=== PATIENT | female | born 1935 | race Caucasian/White ===

== ENCOUNTER 2017-12-08 15:16 | Inpatient (IN) | payer MEDICARE, BC ==
[~2017-12-08] VITALS: Ht 162.6 cm; Wt 69.9 kg
[2017-12-08 18:49] LABS: BASOPHILS % 0.4 % (0.0-2.0); EOSINOPHILS % 2.3 % (0.0-5.0); HEMATOCRIT. 37.6 % (36.0-48.0); HEMOGLOBIN. 12.7 g/dL (12.0-16.0); LYMPHOCYTES % 29.6 % (20.0-50.0); MEAN CORPUSCULAR HEMOGLOBIN 30.5 pg (28.0-32.0); MEAN CORPUSCULAR VOLUME 89.9 fL (81.0-99.0); MEAN PLATELET VOLUME 9.6 fl (7.4-10.4); MONOCYTES % 10.7 % (2.0-8.0); PLATELET 260 x1000/uL (130-400); RED BLOOD CELL COUNT 4.18 mill/uL (4.2-5.4)
[2017-12-08 18:55] LABS: CHLORIDE 103 mEq/L (98-107)
[2017-12-08 22:00] VITALS: BP 193/67
[2017-12-08 22:35] LABS: CLARITY URINE CLEAR (CLEAR); COLOR URINE YELLOW (YELLOW); KETONES URINE NEGATIVE (NEGATIVE); LEUKOCYTE ESTERASE URINE 2+ (NEGATIVE); NITRITE URINE NEGATIVE (NEGATIVE); OCCULT BLOOD URINE NEGATIVE (NEGATIVE); PROTEIN URINE NEGATIVE (NEGATIVE); SPECIFIC GRAVITY URINE 1.009 (1.005-1.030); UROBILINOGEN URINE 0.2 E.U./dL (0.2-1.0)
[2017-12-08] MEDS ORDERED: DEXTROSE 50% WATER 50ML SYRINGE IV PRN (22:45)
[2017-12-08] MEDS ORDERED: CLONIDINE 0.1MG TABLET PO PRN (22:45)
[2017-12-08] MEDS ORDERED: DIPHENHYDRAMINE 50MG/ML VIAL IV PRN (22:45)
[2017-12-08] MEDS ORDERED: ACETAMINOPHEN 325MG TABLET PO PRN (22:45)
[2017-12-08] MEDS ORDERED: MAGNESIUM/ALUMINUM HYDROXIDE/SIMETHICONE 30ML UDC PO PRN (22:45)
[2017-12-08 23:17] VITALS: BP 193/67
[2017-12-09] VITALS (7 sets, daily range): BP systolic 108–167; BP diastolic 56–81
[2017-12-09] MEDS: CEFTRIAXONE 1 G PREMIX 50 ML IV SCH (04:34)
[2017-12-09] MEDS: SODIUM CHLORIDE 0.9% INJ 3ML FLUSH IVF SCH ×3 (05:01→22:33)
[2017-12-09] MEDS: BLOOD SUGAR DIAGNOSTIC STRIP TEST SCH ×4 (06:31→20:24)
[2017-12-09] MEDS: INSULIN LISPRO 100 UNITS/ML SUBCUT SCH ×4 (07:50→20:28)
[2017-12-09] MEDS ORDERED: AMLODIPINE 10MG TABLET PO SCH (09:00)
[2017-12-09] MEDS ORDERED: LOSARTAN POTASSIUM 25 MG TABLET PO NR (12:30)
[2017-12-09 15:39] LABS: T4 FREE 1.21 ng/dL (0.76-1.46)
[2017-12-09] MEDS: METFORMIN HCL 500MG SR TABLET 24HR PO SCH (18:18)
[2017-12-09] MEDS: AMLODIPINE 10MG TABLET PO SCH (18:19)
[2017-12-10] MEDS: CEFTRIAXONE 1 G PREMIX 50 ML IV SCH (02:36)
[2017-12-10 03:55] VITALS: BP 146/60
[2017-12-10] MEDS: SODIUM CHLORIDE 0.9% INJ 3ML FLUSH IVF SCH ×3 (05:27→21:37)
[2017-12-10 06:46] LABS: BASOPHILS % 0.2 % (0.0-2.0); EOSINOPHILS % 2.4 % (0.0-5.0); HEMATOCRIT. 39.2 % (36.0-48.0); HEMOGLOBIN. 13.1 g/dL (12.0-16.0); LYMPHOCYTES % 29.8 % (20.0-50.0); MEAN CORPUSCULAR HEMOGLOBIN 30.4 pg (28.0-32.0); MEAN CORPUSCULAR VOLUME 90.7 fL (81.0-99.0); MEAN PLATELET VOLUME 9.7 fl (7.4-10.4); MONOCYTES % 10.6 % (2.0-8.0); PLATELET 229 x1000/uL (130-400); RED BLOOD CELL COUNT 4.32 mill/uL (4.2-5.4)
[2017-12-10] MEDS: BLOOD SUGAR DIAGNOSTIC STRIP TEST SCH ×4 (06:51→21:26)
[2017-12-10 07:46] LABS: CHLORIDE 103 mEq/L (98-107)
[2017-12-10] MEDS: INSULIN LISPRO 100 UNITS/ML SUBCUT SCH ×4 (07:50→21:00)
[2017-12-10 08:00] VITALS: BP 159/70
[2017-12-10] MEDS: FUROSEMIDE 20MG/2ML VIAL IVP SCH (08:53)
[2017-12-10] MEDS: AMLODIPINE 10MG TABLET PO SCH ×2 (08:54→18:38)
[2017-12-10] MEDS ORDERED: LOSARTAN POTASSIUM 25 MG TABLET PO SCH (09:00)
[2017-12-10] MEDS ORDERED: POTASSIUM CHLORIDE 20MEQ TABLET SR PO NR (11:30)
[2017-12-10 12:00] VITALS: BP 143/63
[2017-12-10 16:00] VITALS: BP 141/68
[2017-12-10 16:38] LABS: AMMONIA 16 uMol/L (<32)
[2017-12-10 16:52] LABS: T4 FREE 1.21 ng/dL (0.76-1.46)
[2017-12-10] MEDS: LORAZEPAM 2MG/ML CPJ IM PRN ×2 (17:20→23:46)
[2017-12-10] MEDS: METFORMIN HCL 500MG SR TABLET 24HR PO SCH (18:38)
[2017-12-10 20:36] VITALS: BP 162/65
[2017-12-10] MEDS: LOSARTAN POTASSIUM 25 MG TABLET PO SCH (21:37)
[2017-12-11] VITALS (8 sets, daily range): BP systolic 131–178; BP diastolic 54–70
[2017-12-11 00:04] LABS: VITAMIN B12 SERUM 429 pg/mL (211-911)
[2017-12-11 00:05] LABS: FOLIC ACID (FOLATE) SERUM > 20.00 ng/mL (>5.38)
[2017-12-11] MEDS: CEFTRIAXONE 1 G PREMIX 50 ML IV SCH (03:27)
[2017-12-11] MEDS: SODIUM CHLORIDE 0.9% INJ 3ML FLUSH IVF SCH ×2 (05:05→13:57)
[2017-12-11] MEDS: BLOOD SUGAR DIAGNOSTIC STRIP TEST SCH ×4 (06:00→21:47)
[2017-12-11] MEDS: LOSARTAN POTASSIUM 25 MG TABLET PO SCH ×2 (08:09→21:00)
[2017-12-11] MEDS: AMLODIPINE 10MG TABLET PO SCH ×2 (08:09→17:31)
[2017-12-11] MEDS: FUROSEMIDE 20MG/2ML VIAL IVP SCH (08:09)
[2017-12-11] MEDS: INSULIN LISPRO 100 UNITS/ML SUBCUT SCH ×4 (08:10→21:00)
[2017-12-11] MEDS ORDERED: DONEPEZIL HCL 5MG TABLET PO SCH (09:00)
[2017-12-11 10:54] LABS: BASOPHILS % 0.6 % (0.0-2.0); HEMATOCRIT. 40.7 % (36.0-48.0); HEMOGLOBIN. 13.7 g/dL (12.0-16.0); LYMPHOCYTES % 26.8 % (20.0-50.0); MEAN CORPUSCULAR HEMOGLOBIN 30.4 pg (28.0-32.0); MEAN CORPUSCULAR VOLUME 90.3 fL (81.0-99.0); MEAN PLATELET VOLUME 10.6 fl (7.4-10.4); MONOCYTES % 9.1 % (2.0-8.0); NEUTROPHILS % 61.5 % (40.0-76.0); PLATELET 249 x1000/uL (130-400); RED BLOOD CELL COUNT 4.51 mill/uL (4.2-5.4); RED CELL DISTRIBUTION WIDTH 14.2 % (11.6-14.6)
[2017-12-11 11:59] LABS: AMMONIA 39 uMol/L (<32)
[2017-12-11 15:37] LABS: CHLORIDE 104 mEq/L (98-107)
[2017-12-11 15:44] LABS: LDL CHOLESTEROL 75 mg/dL (5-100)
[2017-12-11 15:45] LABS: HDL CHOLESTEROL 70 mg/dL (40-59)
[2017-12-11] MEDS: METFORMIN HCL 500MG SR TABLET 24HR PO SCH (17:31)
[2017-12-11] MEDS ORDERED: RISPERIDONE 0.25MG TABLET PO SCH (21:00)
== END 2017-12-11 22:00 | DRG 871 ==
LOC: ER 15:16 → 6WST 19:56 → EDBEDREQ 19:57 → EDBEDREQTM 19:57 → ENRESERV 20:23
PROVIDERS: ADMIT Internal Medicine; ATTEND Internal Medicine
PROC: 4A00X4Z Measurement of Central Nervous Electrical Activity, External Approach (ICD-10-PCS; principal; 2017-12-11)
DX: A41.9 Sepsis, unspecified organism (principal); G92 Toxic encephalopathy; N39.0 Urinary tract infection, site not specified; E66.01 Morbid (severe) obesity due to excess calories; E03.9 Hypothyroidism, unspecified; E11.42 Type 2 diabetes mellitus with diabetic polyneuropathy; E78.5 Hyperlipidemia, unspecified; E87.6 Hypokalemia; F03.90 Unspecified dementia, unspecified severity, without behavioral disturbance, psychotic disturbance, mood disturbance, and anxiety; F32.9 Major depressive disorder, single episode, unspecified; G47.33 Obstructive sleep apnea (adult) (pediatric); I11.9 Hypertensive heart disease without heart failure; I34.0 Nonrheumatic mitral (valve) insufficiency; M19.90 Unspecified osteoarthritis, unspecified site; M54.30 Sciatica, unspecified side; N28.9 Disorder of kidney and ureter, unspecified; B96.89 Other specified bacterial agents as the cause of diseases classified elsewhere; Z96.659 Presence of unspecified artificial knee joint; R26.9 Unspecified abnormalities of gait and mobility; F99 Mental disorder, not otherwise specified; Z79.899 Other long term (current) drug therapy; Z87.440 Personal history of urinary (tract) infections; Z91.19 Patient's noncompliance with other medical treatment and regimen; Z68.26 Body mass index [BMI] 26.0-26.9, adult
CPT/HCPCS: 36415; 70450; 80048; 80053; 80061; 81003; 82140; 82607; 82746; 82962; 83036; 83735; 83880; 84439; 84443; 84481; 84484; 85025; 87077; 87086; 87186; 93005; 93880; 93970; 97162; 99285; G0482; J0696; J1200; J1815; J1940; J2060; J7040

== ENCOUNTER → 2018-03-06 | Outpatient (CLI) | payer MEDICARE, BC | END | disposition home or self-care (01) | LOC: MRI 13:39 | PROVIDERS: ATTEND Internal Medicine Critical Care Medicine | DX: G31.9 Degenerative disease of nervous system, unspecified (principal) | CPT/HCPCS: 70551 ==

== ENCOUNTER 2019-03-28 15:47 | Emergency (ER) | payer MEDICARE, BC ==
[~2019-03-28] VITALS: Ht 160 cm; Wt 77.0 kg
[2019-03-28] MEDS ORDERED: LOSARTAN POTASSIUM 100 MG TABLET PO ONE (19:45)
[2019-03-28] MEDS ORDERED: ACETAMINOPHEN 500MG TABLET PO ONE (19:45)
[2019-03-28 21:31] VITALS: BP 190/65
== END 2019-03-28 21:45 | disposition home or self-care (01) ==
LOC: ER 16:00
DX: S20.212A Contusion of left front wall of thorax, initial encounter (principal); W18.39XA Other fall on same level, initial encounter; Y93.89 Activity, other specified; Y92.89 Other specified places as the place of occurrence of the external cause; Y99.8 Other external cause status; F03.90 Unspecified dementia, unspecified severity, without behavioral disturbance, psychotic disturbance, mood disturbance, and anxiety; E11.9 Type 2 diabetes mellitus without complications; I10 Essential (primary) hypertension; Z96.659 Presence of unspecified artificial knee joint
CPT/HCPCS: 71250; 99284

== ENCOUNTER 2019-04-02 05:02 | Inpatient (IN) | payer MEDICARE, BC ==
[~2019-04-02] VITALS: Ht 160 cm; Wt 99.8 kg
[2019-04-02 07:12] LABS: HEMATOCRIT. 35.7 % (36.0-48.0); HEMOGLOBIN. 12.4 g/dL (12.0-16.0); MEAN CORPUSCULAR HEMOGLOBIN 31.3 pg (28.0-32.0); MEAN CORPUSCULAR VOLUME 90.4 fL (81.0-99.0); MEAN PLATELET VOLUME 9.3 fl (7.4-10.4); PLATELET 216 x1000/uL (130-400); RED BLOOD CELL COUNT 3.95 mill/uL (4.2-5.4); RED CELL DISTRIBUTION WIDTH 13.5 % (11.6-14.6)
[2019-04-02 07:15] LABS: CHLORIDE 100 mEq/L (98-107)
[2019-04-02 07:19] LABS: ETHANOL BLOOD < 10 mg/dL
[2019-04-02 07:22] LABS: LDL CHOLESTEROL 68 mg/dL (5-100)
[2019-04-02 07:28] LABS: INR 1.1; PROTHROMBIN TIME 11.2 sec (9.6-11.0)
[2019-04-02 07:44] LABS: PLATELET ESTIMATE NORMAL
[2019-04-02] MEDS ORDERED: ASPIRIN 325MG EC TABLET PO ONE (07:45)
[2019-04-02] MEDS ORDERED: POTASSIUM CHLORIDE 20MEQ TABLET SR PO ONE (07:45)
[2019-04-02] MEDS ORDERED: IPRATROPIUM/ALBUTEROL 0.5-3(2.5)MG/3ML NEB NEB PRN (09:45)
[2019-04-02] MEDS ORDERED: GUAIFENESIN 200MG/10ML SUGAR FREE UDC PO PRN (09:45)
[2019-04-02] MEDS ORDERED: DEXTROSE 50% WATER 50ML SYRINGE IV PRN (09:45)
[2019-04-02] MEDS ORDERED: CLONIDINE 0.1MG TABLET PO PRN (09:45)
[2019-04-02] MEDS ORDERED: ONDANSETRON HCL 4MG/2ML INJ IV PRN (09:45)
[2019-04-02 10:30] VITALS: BP 165/71
[2019-04-02] MEDS: INSULIN LISPRO 100 UNITS/ML SUBCUT SCH ×3 (12:40→21:00)
[2019-04-02] MEDS: BLOOD SUGAR DIAGNOSTIC STRIP TEST SCH ×3 (13:02→21:25)
[2019-04-02] MEDS: HYDROCHLOROTHIAZIDE 25MG TABLET PO SCH (14:15)
[2019-04-02] MEDS: LOSARTAN POTASSIUM 100 MG TABLET PO SCH (14:16)
[2019-04-02] MEDS: BUMETANIDE 1MG TABLET PO SCH (14:16)
[2019-04-02] MEDS: ACETAMINOPHEN 325MG TABLET PO PRN (16:33)
[2019-04-02 16:44] LABS: CLARITY URINE CLOUDY (CLEAR); COLOR URINE YELLOW (YELLOW); KETONES URINE 2+ (NEGATIVE); LEUKOCYTE ESTERASE URINE 2+ (NEGATIVE); NITRITE URINE POSITIVE (NEGATIVE); OCCULT BLOOD URINE 2+ (NEGATIVE); PROTEIN URINE 1+ (NEGATIVE); SPECIFIC GRAVITY URINE 1.017 (1.005-1.030); UROBILINOGEN URINE 0.2 E.U./dL (0.2-1.0)
[2019-04-02 16:52] VITALS: BP 150/68
[2019-04-02 16:56] LABS: CANNABINOID URINE SCREEN NEGATIVE (NEGATIVE); METHADONE URINE SCREEN NEGATIVE (NEGATIVE); OPIATES URINE SCREEN NEGATIVE (NEGATIVE); PHENCYCLIDINE URINE SCREEN NEGATIVE (NEGATIVE)
[2019-04-02 16:57] LABS: *AMPHETAMINES SCREEN URINE NEGATIVE (NEGATIVE); *BARBITURATES SCREEN URINE NEGATIVE (NEGATIVE); *BENZODIAZEPINES SCREEN URINE NEGATIVE (NEGATIVE); *COCAINE SCREEN URINE NEGATIVE (NEGATIVE)
[2019-04-02 20:00] VITALS: BP 136/70
[2019-04-02] MEDS: LEVOFLOXACIN 500MG PREMIX 100 ML IV SCH (23:48)
[2019-04-03] VITALS (7 sets, daily range): BP systolic 131–159; BP diastolic 60–83
[2019-04-03] MEDS: ACETAMINOPHEN 325MG TABLET PO PRN (01:15)
[2019-04-03] MEDS: LEVOTHYROXINE SODIUM 100MCG TABLET PO SCH (05:57)
[2019-04-03] MEDS: OMEPRAZOLE 20MG CAPSULE EXTENDED RELEASE PO SCH (05:57)
[2019-04-03] MEDS: BLOOD SUGAR DIAGNOSTIC STRIP TEST SCH ×4 (06:16→21:00)
[2019-04-03] MEDS: INSULIN LISPRO 100 UNITS/ML SUBCUT SCH ×4 (06:17→21:00)
[2019-04-03 07:36] LABS: BASOPHILS % 0.3 % (0.0-2.0); EOSINOPHILS % 0.2 % (0.0-5.0); HEMATOCRIT. 35.7 % (36.0-48.0); HEMOGLOBIN. 12.4 g/dL (12.0-16.0); MEAN CORPUSCULAR VOLUME 89.4 fL (81.0-99.0); MEAN PLATELET VOLUME 9.5 fl (7.4-10.4); MONOCYTES % 14.4 % (2.0-8.0); NEUTROPHILS % 68.1 % (40.0-76.0); PLATELET 210 x1000/uL (130-400); RED BLOOD CELL COUNT 3.99 mill/uL (4.2-5.4); RED CELL DISTRIBUTION WIDTH 13.4 % (11.6-14.6)
[2019-04-03 08:11] LABS: CHLORIDE 99 mEq/L (98-107)
[2019-04-03 08:28] LABS: LDL CHOLESTEROL 59 mg/dL (5-100)
[2019-04-03 08:30] LABS: HDL CHOLESTEROL 52 mg/dL (40-59); T4 FREE 1.22 ng/dL (0.76-1.46)
[2019-04-03] MEDS: BUMETANIDE 1MG TABLET PO SCH (08:52)
[2019-04-03] MEDS: POTASSIUM CHLORIDE 20MEQ TABLET SR PO SCH (08:53)
[2019-04-03] MEDS: HYDROCHLOROTHIAZIDE 25MG TABLET PO SCH (08:53)
[2019-04-03] MEDS: LOSARTAN POTASSIUM 100 MG TABLET PO SCH (08:53)
[2019-04-03] MEDS ORDERED: POTASSIUM CHLORIDE 20MEQ TABLET SR PO NR (11:00)
[2019-04-03] MEDS ORDERED: PNEUMOCOCCAL 23-VAL P-SAC VAC 0.5 ML IM ONE (11:00)
[2019-04-03] MEDS ORDERED: INFLUENZA VIRUS VACCINE(AFLURIA) 0.5ML SYR IM ONE (11:00)
[2019-04-03] MEDS: LEVOFLOXACIN 500MG PREMIX 100 ML IV SCH (21:14)
[2019-04-04] VITALS (7 sets, daily range): BP systolic 128–159; BP diastolic 46–71
[2019-04-04] MEDS: BLOOD SUGAR DIAGNOSTIC STRIP TEST SCH ×3 (06:12→17:33)
[2019-04-04] MEDS: LEVOTHYROXINE SODIUM 100MCG TABLET PO SCH (06:12)
[2019-04-04] MEDS: OMEPRAZOLE 20MG CAPSULE EXTENDED RELEASE PO SCH (06:12)
[2019-04-04] MEDS: INSULIN LISPRO 100 UNITS/ML SUBCUT SCH ×3 (06:29→17:33)
[2019-04-04] MEDS: BUMETANIDE 1MG TABLET PO SCH ×2 (09:00→10:03)
[2019-04-04] MEDS: LOSARTAN POTASSIUM 100 MG TABLET PO SCH ×2 (09:00→10:03)
[2019-04-04] MEDS: HYDROCHLOROTHIAZIDE 25MG TABLET PO SCH ×2 (09:00→10:03)
[2019-04-04] MEDS: POTASSIUM CHLORIDE 20MEQ TABLET SR PO SCH ×2 (09:00→10:03)
[2019-04-04 16:45] LABS: CHLORIDE 98 mEq/L (98-107)
[2019-04-04] MEDS ORDERED: FAMOTIDINE 20MG TABLET PO SCH (17:00)
[2019-04-04] MEDS ORDERED: POTASSIUM CHLORIDE 20MEQ TABLET SR PO NR (17:30)
[2019-04-04] MEDS ORDERED: LEVOFLOXACIN 500MG TABLET PO SCH (21:00)
== END 2019-04-04 18:39 | DRG 552 ==
LOC: ER 05:02 → 8WST 07:51 → EDBEDREQ 07:52 → EDBEDREQSVC 07:52 → ENRESERV 08:46
PROVIDERS: ADMIT Internal Medicine Critical Care Medicine; ATTEND Internal Medicine Critical Care Medicine
DX: M48.02 Spinal stenosis, cervical region (principal); E03.9 Hypothyroidism, unspecified; E78.5 Hyperlipidemia, unspecified; E87.6 Hypokalemia; F32.9 Major depressive disorder, single episode, unspecified; G47.33 Obstructive sleep apnea (adult) (pediatric); E11.42 Type 2 diabetes mellitus with diabetic polyneuropathy; I10 Essential (primary) hypertension; Z96.652 Presence of left artificial knee joint; W06.XXXA Fall from bed, initial encounter; M48.061 Spinal stenosis, lumbar region without neurogenic claudication; M47.812 Spondylosis without myelopathy or radiculopathy, cervical region; M50.221 Other cervical disc displacement at C4-C5 level; M54.30 Sciatica, unspecified side; M43.16 Spondylolisthesis, lumbar region; M51.9 Unspecified thoracic, thoracolumbar and lumbosacral intervertebral disc disorder; Y93.89 Activity, other specified; Z88.0 Allergy status to penicillin; Y92.098 Other place in other non-institutional residence as the place of occurrence of the external cause; Y99.8 Other external cause status
CPT/HCPCS: 36415; 70551; 71045; 72141; 72146; 72148; 73562; 80048; 80061; 80305; 80320; 81003; 82962; 83036; 83721; 83735; 84439; 84443; 84481; 84484; 90686; 90732; 93005; 97162; 97167; 99291; C1893; J1815; J1956; J2405; J7040; G0480

== ENCOUNTER 2019-04-04 18:40 | Inpatient (IN) | payer MEDICARE, BC ==
[~2019-04-04] VITALS: Ht 160 cm; Wt 99.8 kg
[2019-04-04 19:00] VITALS: BP 157/77
[2019-04-04 20:00] VITALS: BP 157/77
[2019-04-04] MEDS ORDERED: ONDANSETRON HCL 4MG/2ML INJ IV PRN (20:15)
[2019-04-04] MEDS ORDERED: DEXTROSE 50% WATER 50ML SYRINGE IV PRN (20:15)
[2019-04-04] MEDS ORDERED: GUAIFENESIN 200MG/10ML SUGAR FREE UDC PO PRN (20:15)
[2019-04-04] MEDS ORDERED: IPRATROPIUM/ALBUTEROL 0.5-3(2.5)MG/3ML NEB HHN PRN (20:15)
[2019-04-04] MEDS ORDERED: CLONIDINE 0.1MG TABLET PO PRN (20:15)
[2019-04-04] MEDS: LEVOFLOXACIN 500MG TABLET PO SCH (21:00)
[2019-04-04] MEDS: INSULIN LISPRO 100 UNITS/ML SUBCUT SCH (21:01)
[2019-04-04] MEDS: BLOOD SUGAR DIAGNOSTIC STRIP TEST SCH (21:01)
[2019-04-04] MEDS: ZOLPIDEM TARTRATE 5MG TABLET PO PRN (23:44)
[2019-04-05] MEDS: BLOOD SUGAR DIAGNOSTIC STRIP TEST SCH ×4 (06:25→20:19)
[2019-04-05] MEDS: LEVOTHYROXINE SODIUM 100MCG TABLET PO SCH (06:25)
[2019-04-05] MEDS: INSULIN LISPRO 100 UNITS/ML SUBCUT SCH ×4 (06:25→20:38)
[2019-04-05 07:30] LABS: BASOPHILS % 0.2 % (0.0-2.0); EOSINOPHILS % 0.2 % (0.0-5.0); HEMATOCRIT. 37.9 % (36.0-48.0); HEMOGLOBIN. 13.2 g/dL (12.0-16.0); LYMPHOCYTES % 24.2 % (20.0-50.0); MEAN CORPUSCULAR HEMOGLOBIN 31.1 pg (28.0-32.0); MEAN CORPUSCULAR VOLUME 89.4 fL (81.0-99.0); MEAN PLATELET VOLUME 8.9 fl (7.4-10.4); MONOCYTES % 14.1 % (2.0-8.0); NEUTROPHILS % 61.3 % (40.0-76.0); PLATELET 217 x1000/uL (130-400); RED BLOOD CELL COUNT 4.24 mill/uL (4.2-5.4); RED CELL DISTRIBUTION WIDTH 13.1 % (11.6-14.6)
[2019-04-05 07:55] LABS: CHLORIDE 100 mEq/L (98-107)
[2019-04-05] MEDS: HYDROCHLOROTHIAZIDE 25MG TABLET PO SCH (08:17)
[2019-04-05] MEDS: BUMETANIDE 1MG TABLET PO SCH (08:17)
[2019-04-05] MEDS: LOSARTAN POTASSIUM 100 MG TABLET PO SCH (08:18)
[2019-04-05] MEDS: FAMOTIDINE 20MG TABLET PO SCH ×2 (08:18→16:41)
[2019-04-05] MEDS: POTASSIUM CHLORIDE 20MEQ TABLET SR PO SCH (08:18)
[2019-04-05 08:38] VITALS: BP 150/50
[2019-04-05] MEDS: LORAZEPAM 0.5MG TABLET PO PRN (16:34)
[2019-04-05 20:00] VITALS: BP 156/59
[2019-04-05] MEDS: LEVOFLOXACIN 500MG TABLET PO SCH (20:19)
[2019-04-05] MEDS: ZOLPIDEM TARTRATE 5MG TABLET PO PRN (22:37)
[2019-04-06] MEDS: LORAZEPAM 0.5MG TABLET PO PRN ×2 (05:57→16:23)
[2019-04-06] MEDS: BLOOD SUGAR DIAGNOSTIC STRIP TEST SCH ×4 (06:02→20:50)
[2019-04-06] MEDS: LEVOTHYROXINE SODIUM 100MCG TABLET PO SCH (06:02)
[2019-04-06] MEDS: INSULIN LISPRO 100 UNITS/ML SUBCUT SCH ×4 (06:04→20:56)
[2019-04-06 08:00] VITALS: BP 134/67
[2019-04-06] MEDS: FAMOTIDINE 20MG TABLET PO SCH ×2 (08:43→16:23)
[2019-04-06] MEDS: HYDROCHLOROTHIAZIDE 25MG TABLET PO SCH (08:43)
[2019-04-06] MEDS: LOSARTAN POTASSIUM 100 MG TABLET PO SCH (08:43)
[2019-04-06] MEDS: POTASSIUM CHLORIDE 20MEQ TABLET SR PO SCH (08:43)
[2019-04-06] MEDS: BUMETANIDE 1MG TABLET PO SCH (08:43)
[2019-04-06] MEDS: LEVOFLOXACIN 500MG TABLET PO SCH (20:50)
[2019-04-06] MEDS: ZOLPIDEM TARTRATE 5MG TABLET PO PRN (20:50)
[2019-04-06] MEDS: ACETAMINOPHEN 325MG TABLET PO PRN (20:50)
[2019-04-06 22:55] VITALS: BP 154/73
[2019-04-07] MEDS: LORAZEPAM 0.5MG TABLET PO PRN ×3 (00:06→21:14)
[2019-04-07] MEDS: LEVOTHYROXINE SODIUM 100MCG TABLET PO SCH (07:00)
[2019-04-07] MEDS: ACETAMINOPHEN 325MG TABLET PO PRN ×2 (07:01→20:17)
[2019-04-07] MEDS: BLOOD SUGAR DIAGNOSTIC STRIP TEST SCH ×4 (07:01→20:25)
[2019-04-07] MEDS: INSULIN LISPRO 100 UNITS/ML SUBCUT SCH ×4 (07:06→20:26)
[2019-04-07 08:00] VITALS: BP 120/57
[2019-04-07] MEDS: LOSARTAN POTASSIUM 100 MG TABLET PO SCH (09:02)
[2019-04-07] MEDS: POTASSIUM CHLORIDE 20MEQ TABLET SR PO SCH (09:02)
[2019-04-07] MEDS: FAMOTIDINE 20MG TABLET PO SCH ×2 (09:02→16:43)
[2019-04-07] MEDS: HYDROCHLOROTHIAZIDE 25MG TABLET PO SCH (09:02)
[2019-04-07] MEDS: BUMETANIDE 1MG TABLET PO SCH (09:02)
[2019-04-07] MEDS ORDERED: HYDROCODONE/ACETAMINOPHEN 5/325MG TABLET PO PRN (16:00)
[2019-04-07] MEDS: METFORMIN HCL 500MG TABLET PO SCH (17:04)
[2019-04-07 20:00] VITALS: BP 138/72
[2019-04-07] MEDS: LEVOFLOXACIN 500MG TABLET PO SCH (20:17)
[2019-04-08 02:58] LABS: CLARITY URINE CLEAR (CLEAR); COLOR URINE YELLOW (YELLOW); KETONES URINE NEGATIVE (NEGATIVE); LEUKOCYTE ESTERASE URINE 1+ (NEGATIVE); NITRITE URINE NEGATIVE (NEGATIVE); OCCULT BLOOD URINE NEGATIVE (NEGATIVE); PROTEIN URINE TRACE (NEGATIVE); SPECIFIC GRAVITY URINE 1.016 (1.005-1.030); UROBILINOGEN URINE 0.2 E.U./dL (0.2-1.0)
[2019-04-08] MEDS: LEVOTHYROXINE SODIUM 100MCG TABLET PO SCH (06:22)
[2019-04-08] MEDS: ACETAMINOPHEN 325MG TABLET PO PRN (06:29)
[2019-04-08] MEDS: BLOOD SUGAR DIAGNOSTIC STRIP TEST SCH ×4 (07:18→21:32)
[2019-04-08] MEDS: INSULIN LISPRO 100 UNITS/ML SUBCUT SCH ×4 (07:18→21:00)
[2019-04-08 08:08] VITALS: BP 126/63
[2019-04-08 08:17] LABS: VITAMIN B12 SERUM 973 pg/mL (211-911)
[2019-04-08] MEDS: LOSARTAN POTASSIUM 100 MG TABLET PO SCH (09:00)
[2019-04-08] MEDS: FAMOTIDINE 20MG TABLET PO SCH ×2 (09:21→16:55)
[2019-04-08] MEDS: METFORMIN HCL 500MG TABLET PO SCH ×2 (09:22→16:55)
[2019-04-08] MEDS: HYDROCHLOROTHIAZIDE 25MG TABLET PO SCH (09:23)
[2019-04-08] MEDS: BUMETANIDE 1MG TABLET PO SCH (09:23)
[2019-04-08] MEDS: POTASSIUM CHLORIDE 20MEQ TABLET SR PO SCH (09:24)
[2019-04-08 20:00] VITALS: BP 129/39
[2019-04-08] MEDS: LORAZEPAM 0.5MG TABLET PO PRN (20:34)
[2019-04-08] MEDS: LEVOFLOXACIN 500MG TABLET PO SCH (21:32)
[2019-04-09] MEDS: LORAZEPAM 0.5MG TABLET PO PRN (00:36)
[2019-04-09] MEDS: LEVOTHYROXINE SODIUM 100MCG TABLET PO SCH (06:09)
[2019-04-09] MEDS: BLOOD SUGAR DIAGNOSTIC STRIP TEST SCH ×4 (07:28→21:07)
[2019-04-09] MEDS: INSULIN LISPRO 100 UNITS/ML SUBCUT SCH ×4 (07:30→21:00)
[2019-04-09 08:00] VITALS: BP 142/65
[2019-04-09] MEDS: HYDROCHLOROTHIAZIDE 25MG TABLET PO SCH (08:41)
[2019-04-09] MEDS: LOSARTAN POTASSIUM 100 MG TABLET PO SCH (08:41)
[2019-04-09] MEDS: FAMOTIDINE 20MG TABLET PO SCH ×2 (08:41→17:31)
[2019-04-09] MEDS: METFORMIN HCL 500MG TABLET PO SCH ×2 (08:41→17:31)
[2019-04-09] MEDS: POTASSIUM CHLORIDE 20MEQ TABLET SR PO SCH (08:41)
[2019-04-09] MEDS: BUMETANIDE 1MG TABLET PO SCH (08:41)
[2019-04-09 20:00] VITALS: BP 128/52
[2019-04-09] MEDS: LEVOFLOXACIN 500MG TABLET PO SCH (21:02)
[2019-04-09] MEDS: ZOLPIDEM TARTRATE 5MG TABLET PO PRN (21:02)
[2019-04-10] MEDS: BLOOD SUGAR DIAGNOSTIC STRIP TEST SCH ×4 (06:10→21:13)
[2019-04-10] MEDS: LEVOTHYROXINE SODIUM 100MCG TABLET PO SCH (06:10)
[2019-04-10] MEDS: INSULIN LISPRO 100 UNITS/ML SUBCUT SCH ×4 (07:00→21:00)
[2019-04-10 08:14] VITALS: BP 152/58
[2019-04-10] MEDS: METFORMIN HCL 500MG TABLET PO SCH ×2 (08:21→16:59)
[2019-04-10] MEDS: HYDROCHLOROTHIAZIDE 25MG TABLET PO SCH (08:21)
[2019-04-10] MEDS: POTASSIUM CHLORIDE 20MEQ TABLET SR PO SCH (08:21)
[2019-04-10] MEDS: FAMOTIDINE 20MG TABLET PO SCH ×2 (08:21→16:59)
[2019-04-10] MEDS: BUMETANIDE 1MG TABLET PO SCH (08:21)
[2019-04-10] MEDS: LOSARTAN POTASSIUM 100 MG TABLET PO SCH (08:21)
[2019-04-10] MEDS: ONDANSETRON HCL 4MG TABLET PO PRN (13:08)
[2019-04-10 18:15] LABS: CLARITY URINE CLEAR (CLEAR); COLOR URINE YELLOW (YELLOW); KETONES URINE NEGATIVE (NEGATIVE); LEUKOCYTE ESTERASE URINE TRACE (NEGATIVE); NITRITE URINE NEGATIVE (NEGATIVE); OCCULT BLOOD URINE NEGATIVE (NEGATIVE); PROTEIN URINE NEGATIVE (NEGATIVE); SPECIFIC GRAVITY URINE 1.012 (1.005-1.030); UROBILINOGEN URINE 0.2 E.U./dL (0.2-1.0)
[2019-04-10 20:00] VITALS: BP 115/50
[2019-04-10] MEDS: ACETAMINOPHEN 325MG TABLET PO PRN (21:21)
[2019-04-10] MEDS ORDERED: ZOLPIDEM TARTRATE 5MG TABLET PO NR (22:45)
[2019-04-11] MEDS: BLOOD SUGAR DIAGNOSTIC STRIP TEST SCH ×2 (06:41→11:15)
[2019-04-11] MEDS: LEVOTHYROXINE SODIUM 100MCG TABLET PO SCH (06:41)
[2019-04-11] MEDS: INSULIN LISPRO 100 UNITS/ML SUBCUT SCH ×2 (06:46→12:50)
[2019-04-11 08:00] VITALS: BP 147/82
[2019-04-11] MEDS: ONDANSETRON HCL 4MG TABLET PO PRN (08:54)
[2019-04-11] MEDS: HYDROCHLOROTHIAZIDE 25MG TABLET PO SCH (09:50)
[2019-04-11] MEDS: METFORMIN HCL 500MG TABLET PO SCH (09:50)
[2019-04-11] MEDS: BUMETANIDE 1MG TABLET PO SCH (09:50)
[2019-04-11] MEDS: LOSARTAN POTASSIUM 100 MG TABLET PO SCH (09:50)
[2019-04-11] MEDS: FAMOTIDINE 20MG TABLET PO SCH (09:50)
[2019-04-11] MEDS: POTASSIUM CHLORIDE 20MEQ TABLET SR PO SCH (09:50)
[2019-04-11 12:54] VITALS: BP 147/82
== END 2019-04-11 14:25 | disposition home health service (06) | DRG 552 ==
PROVIDERS: ADMIT Psychiatry & Neurology Neurology; ATTEND Internal Medicine Critical Care Medicine
DX: M48.02 Spinal stenosis, cervical region (principal); G93.40 Encephalopathy, unspecified; M48.07 Spinal stenosis, lumbosacral region; M79.609 Pain in unspecified limb; R26.9 Unspecified abnormalities of gait and mobility; R53.81 Other malaise; G47.33 Obstructive sleep apnea (adult) (pediatric); F32.9 Major depressive disorder, single episode, unspecified; M19.90 Unspecified osteoarthritis, unspecified site; E78.5 Hyperlipidemia, unspecified; E03.9 Hypothyroidism, unspecified; M54.30 Sciatica, unspecified side; R32 Unspecified urinary incontinence; R41.0 Disorientation, unspecified; I11.9 Hypertensive heart disease without heart failure; J44.9 Chronic obstructive pulmonary disease, unspecified; M48.061 Spinal stenosis, lumbar region without neurogenic claudication; E11.42 Type 2 diabetes mellitus with diabetic polyneuropathy; F41.9 Anxiety disorder, unspecified; Z96.653 Presence of artificial knee joint, bilateral; Z79.84 Long term (current) use of oral hypoglycemic drugs; Z88.0 Allergy status to penicillin
CPT/HCPCS: 36415; 80048; 81003; 82140; 82607; 82962; 86592; 86788; 86789; 92523; 93005; 93970; 94640; 97110; 97116; 97162; 97165; 97166; 97530; 97535; A6261; J1815; J7620; Q0162

== ENCOUNTER → 2020-12-09 | Outpatient (CLI) | payer MEDICARE, BC | END | disposition home or self-care (01) | LOC: CT 14:32 | PROVIDERS: ATTEND Internal Medicine Critical Care Medicine | DX: I67.82 Cerebral ischemia (principal); G31.89 Other specified degenerative diseases of nervous system; G93.89 Other specified disorders of brain; I63.9 Cerebral infarction, unspecified ==

== ENCOUNTER 2021-03-29 16:30 | Inpatient (IN) | payer MEDICARE, BC ==
[~2021-03-29] VITALS: Ht 160 cm; Wt 93.0 kg
[2021-03-29] MEDS ORDERED: DOCUSATE SODIUM 100MG CAPSULE PO PRN (18:00)
[2021-03-29] MEDS ORDERED: ONDANSETRON HCL 4MG/2ML INJ IV PRN (18:00)
[2021-03-29] MEDS ORDERED: ACETAMINOPHEN 325MG TABLET PO PRN (18:00)
[2021-03-29] MEDS ORDERED: IPRATROPIUM/ALBUTEROL 0.5-3(2.5)MG/3ML NEB NEB PRN (18:00)
[2021-03-29] MEDS ORDERED: LEVO100T9 PO (19:05)
[2021-03-29] MEDS ORDERED: LOSA1TAB37 MT (19:05)
[2021-03-29] MEDS ORDERED: OMEP40CA20 MT (19:05)
[2021-03-29] MEDS ORDERED: CRES10 PO (19:07)
[2021-03-29] MEDS ORDERED: BUME0.5T5 PO (19:07)
[2021-03-29] MEDS ORDERED: CLON0.2T PO (19:08)
[2021-03-29] MEDS ORDERED: ASCO-316 PO (19:31)
[2021-03-29] MEDS ORDERED: METF-414 PO (19:31)
[2021-03-29] MEDS ORDERED: FEXO180T87 PO (19:31)
[2021-03-29] MEDS ORDERED: CALC-900 PO (19:31)
[2021-03-29] MEDS ORDERED: POTA-79 PO (19:31)
[2021-03-29 20:00] VITALS: BP 117/51
[2021-03-29 20:28] LABS: BASOPHILS % 0.3 % (0.0-2.0); EOSINOPHILS % 1.8 % (0.0-5.0); HEMATOCRIT. 34.6 % (36.0-48.0); HEMOGLOBIN. 11.7 g/dL (12.0-16.0); LYMPHOCYTES % 31.2 % (20.0-50.0); MEAN CORPUSCULAR HEMOGLOBIN 30.3 pg (28.0-32.0); MEAN CORPUSCULAR VOLUME 89.6 fL (81.0-99.0); MEAN PLATELET VOLUME 9.8 fl (7.4-10.4); MONOCYTES % 11.2 % (2.0-8.0); NEUTROPHILS % 55.5 % (40.0-76.0); PLATELET 218 x1000/uL (130-400); RED BLOOD CELL COUNT 3.87 mill/uL (4.2-5.4)
[2021-03-29 20:30] LABS: PROTHROMBIN TIME 10.5 sec (9.6-11.0)
[2021-03-29 20:38] LABS: CHLORIDE 106 mEq/L (98-107)
[2021-03-29] MEDS: DEXT 5%/0.45% NACL 1000ML 1,000 ML IV SCH (23:35)
[2021-03-30] VITALS (7 sets, daily range): BP systolic 102–184; BP diastolic 65–88
[2021-03-30 05:30] LABS: CLARITY URINE CLEAR (CLEAR); COLOR URINE YELLOW (YELLOW); KETONES URINE NEGATIVE (NEGATIVE); LEUKOCYTE ESTERASE URINE 3+ (NEGATIVE); NITRITE URINE NEGATIVE (NEGATIVE); OCCULT BLOOD URINE NEGATIVE (NEGATIVE); PH URINE 6.5 (4.5-8.0); PROTEIN URINE NEGATIVE (NEGATIVE); SPECIFIC GRAVITY URINE 1.007 (1.005-1.030); UROBILINOGEN URINE 0.2 E.U./dL (0.2-1.0)
[2021-03-30 07:54] LABS: BASOPHILS % 0.3 % (0.0-2.0); EOSINOPHILS % 2.2 % (0.0-5.0); HEMATOCRIT. 34.4 % (36.0-48.0); HEMOGLOBIN. 11.8 g/dL (12.0-16.0); LYMPHOCYTES % 30.8 % (20.0-50.0); MEAN CORPUSCULAR HEMOGLOBIN 30.8 pg (28.0-32.0); MEAN CORPUSCULAR VOLUME 89.8 fL (81.0-99.0); MEAN PLATELET VOLUME 10.3 fl (7.4-10.4); NEUTROPHILS % 54.7 % (40.0-76.0); PLATELET 221 x1000/uL (130-400); RED BLOOD CELL COUNT 3.83 mill/uL (4.2-5.4); RED CELL DISTRIBUTION WIDTH 14.1 % (11.6-14.6)
[2021-03-30 08:00] LABS: CHLORIDE 105 mEq/L (98-107)
[2021-03-30] MEDS ORDERED: ENOXAPARIN 40MG/0.4ML SYR SUBCUT SCH (09:00)
[2021-03-30] MEDS: LEVOTHYROXINE SODIUM 100MCG TABLET PO SCH (11:03)
[2021-03-30] MEDS: ASCORBIC ACID 500 MG TABLET PO SCH (11:03)
[2021-03-30] MEDS: CLONIDINE 0.2MG TABLET PO SCH (11:04)
[2021-03-30] MEDS: POTASSIUM CHLORIDE 20MEQ TABLET SR PO SCH (11:04)
[2021-03-30] MEDS: LEVOFLOXACIN 500MG PREMIX 100 ML IV SCH (11:34)
[2021-03-30] MEDS ORDERED: DEXTROSE 50% WATER 50ML SYRINGE IV PRN (14:15)
[2021-03-30] MEDS: BLOOD SUGAR DIAGNOSTIC STRIP TEST SCH ×2 (16:40→21:19)
[2021-03-30] MEDS: INSULIN LISPRO 100 UNITS/ML SUBCUT SCH ×2 (17:10→21:00)
[2021-03-30] MEDS: METFORMIN HCL 500MG TABLET PO SCH (17:28)
[2021-03-30] MEDS: DEXT 5%/0.45% NACL 1000ML 1,000 ML IV SCH (17:29)
[2021-03-30] MEDS: CLONIDINE 0.1MG TABLET PO PRN (21:20)
[2021-03-30] MEDS: OMEPRAZOLE 20MG CAPSULE EXTENDED RELEASE PO SCH (21:20)
[2021-03-31] VITALS (7 sets, daily range): BP systolic 144–200; BP diastolic 61–81
[2021-03-31] MEDS: BLOOD SUGAR DIAGNOSTIC STRIP TEST SCH ×4 (06:14→20:58)
[2021-03-31] MEDS: INSULIN LISPRO 100 UNITS/ML SUBCUT SCH ×4 (06:15→20:58)
[2021-03-31] MEDS: OMEPRAZOLE 20MG CAPSULE EXTENDED RELEASE PO SCH (06:59)
[2021-03-31] MEDS: LEVOTHYROXINE SODIUM 100MCG TABLET PO SCH (06:59)
[2021-03-31] MEDS: POTASSIUM CHLORIDE 20MEQ TABLET SR PO SCH (08:00)
[2021-03-31] MEDS: CLONIDINE 0.2MG TABLET PO SCH ×2 (08:00→17:47)
[2021-03-31] MEDS: ENOXAPARIN 30MG/0.3ML SYR SUBCUT SCH ×2 (08:00→20:57)
[2021-03-31] MEDS: ASCORBIC ACID 500 MG TABLET PO SCH (08:00)
[2021-03-31] MEDS: METFORMIN HCL 500MG TABLET PO SCH ×2 (08:16→17:47)
[2021-03-31] MEDS: LOSARTAN POTASSIUM 50 MG TABLET PO SCH (08:45)
[2021-03-31] MEDS: DEXT 5%/0.45% NACL 1000ML 1,000 ML IV SCH ×2 (10:45→20:58)
[2021-03-31 10:54] LABS: CHLORIDE 107 mEq/L (98-107)
[2021-03-31] MEDS: LEVOFLOXACIN 500MG PREMIX 100 ML IV SCH (11:49)
[2021-03-31] MEDS: CLONIDINE 0.1MG TABLET PO PRN ×2 (12:08→20:56)
[2021-04-01] VITALS: BP 152/55
[2021-04-01 04:00] VITALS: BP 158/55
[2021-04-01] MEDS: INSULIN LISPRO 100 UNITS/ML SUBCUT SCH ×3 (05:42→17:10)
[2021-04-01] MEDS: BLOOD SUGAR DIAGNOSTIC STRIP TEST SCH ×3 (05:42→16:40)
[2021-04-01] MEDS: LEVOTHYROXINE SODIUM 100MCG TABLET PO SCH (06:14)
[2021-04-01] MEDS ORDERED: FAMOTIDINE 20MG TABLET PO SCH (06:40)
[2021-04-01 08:00] VITALS: BP 180/73
[2021-04-01] MEDS: ASCORBIC ACID 500 MG TABLET PO SCH (08:17)
[2021-04-01] MEDS: LOSARTAN POTASSIUM 50 MG TABLET PO SCH (08:17)
[2021-04-01] MEDS: POTASSIUM CHLORIDE 20MEQ TABLET SR PO SCH (08:17)
[2021-04-01] MEDS: METFORMIN HCL 500MG TABLET PO SCH ×2 (08:17→17:50)
[2021-04-01] MEDS: CLONIDINE 0.2MG TABLET PO SCH ×2 (08:18→17:50)
[2021-04-01] MEDS: ENOXAPARIN 30MG/0.3ML SYR SUBCUT SCH (08:18)
[2021-04-01] MEDS: LEVOFLOXACIN 500MG PREMIX 100 ML IV SCH (11:00)
[2021-04-01 12:00] VITALS: BP 112/73
[2021-04-01 12:27] LABS: VITAMIN B12 SERUM 400 pg/mL (211-911)
[2021-04-01] MEDS ORDERED: FUROSEMIDE 20MG/2ML VIAL IVP SCH (14:30)
[2021-04-01 16:00] VITALS: BP 182/70
[2021-04-01] MEDS ORDERED: SULFAMETHOXAZOLE/TRIMETHOPRIM 400/80MG TAB PO SCH (17:00)
[2021-04-01 17:30] VITALS: BP 182/70
[2021-04-01] MEDS ORDERED: QUETIAPINE FUMARATE 25MG TABLET PO SCH (21:00)
== END 2021-04-01 20:40 | DRG 70 ==
LOC: 7EST 16:30
PROVIDERS: ADMIT Internal Medicine Critical Care Medicine; ATTEND Hospitalist
DX: G93.40 Encephalopathy, unspecified (principal); I50.33 Acute on chronic diastolic (congestive) heart failure; N39.0 Urinary tract infection, site not specified; I11.0 Hypertensive heart disease with heart failure; E11.42 Type 2 diabetes mellitus with diabetic polyneuropathy; M94.0 Chondrocostal junction syndrome [Tietze]; E03.9 Hypothyroidism, unspecified; E78.5 Hyperlipidemia, unspecified; F32.A Depression, unspecified; G47.33 Obstructive sleep apnea (adult) (pediatric); M19.90 Unspecified osteoarthritis, unspecified site; M48.02 Spinal stenosis, cervical region; M54.30 Sciatica, unspecified side; E66.01 Morbid (severe) obesity due to excess calories; R62.7 Adult failure to thrive; Z82.49 Family history of ischemic heart disease and other diseases of the circulatory system; Z87.440 Personal history of urinary (tract) infections; Z88.0 Allergy status to penicillin; Z79.899 Other long term (current) drug therapy; Z79.84 Long term (current) use of oral hypoglycemic drugs; Z68.36 Body mass index [BMI] 36.0-36.9, adult
CPT/HCPCS: 36415; 71045; 80048; 81003; 82140; 82607; 82962; 83036; 84443; 85025; 87077; 87186; 93970; 97162; 97166; 97530; J1650; J1956

== ENCOUNTER 2021-09-12 18:20 | Inpatient (IN) | payer MEDICARE, BC ==
[~2021-09-12] VITALS: Ht 162.6 cm; Wt 83.0 kg
[~2021-09-12 18:20] MED LIST: ASCO-316 PO; BUME0.5T5 PO; CALC-900 PO; CLON0.2T PO; CRES10 PO; FEXO180T87 PO; LEVO100T9 PO; LOSA1TAB37 MT; METF-414 PO; OMEP40CA20 MT; POTA-79 PO
[2021-09-12] MEDS ORDERED: CLONIDINE 0.2MG TABLET PO ONE (18:45)
[2021-09-12 20:28] LABS: CLARITY URINE CLEAR (CLEAR); COLOR URINE YELLOW (YELLOW); KETONES URINE TRACE (NEGATIVE); LEUKOCYTE ESTERASE URINE 2+ (NEGATIVE); NITRITE URINE POSITIVE (NEGATIVE); OCCULT BLOOD URINE NEGATIVE (NEGATIVE); PROTEIN URINE NEGATIVE (NEGATIVE); SPECIFIC GRAVITY URINE 1.007 (1.005-1.030); UROBILINOGEN URINE 0.2 E.U./dL (0.2-1.0)
[2021-09-12 20:34] LABS: BASOPHILS % 0.4 % (0.0-2.0); EOSINOPHILS % 1.9 % (0.0-5.0); HEMATOCRIT. 34.1 % (36.0-48.0); HEMOGLOBIN. 11.8 g/dL (12.0-16.0); LYMPHOCYTES % 26.5 % (20.0-50.0); MEAN CORPUSCULAR HEMOGLOBIN 30.9 pg (28.0-32.0); MEAN CORPUSCULAR VOLUME 89.4 fL (81.0-99.0); MEAN PLATELET VOLUME 8.9 fl (7.4-10.4); MONOCYTES % 11.8 % (2.0-8.0); NEUTROPHILS % 59.4 % (40.0-76.0); PLATELET 209 x1000/uL (130-400); RED BLOOD CELL COUNT 3.81 mill/uL (4.2-5.4); RED CELL DISTRIBUTION WIDTH 14.1 % (11.6-14.6)
[2021-09-12 20:38] LABS: CHLORIDE 107 mEq/L (98-107)
[2021-09-12] MEDS ORDERED: CEPHALEXIN 250MG CAPSULE PO NR (21:15)
[2021-09-12] MEDS ORDERED: POTASSIUM CHLORIDE 20MEQ TABLET SR PO NR (21:15)
[2021-09-13] VITALS (7 sets, daily range): BP systolic 159–200; BP diastolic 66–82
[2021-09-13] MEDS: DEXT 5%/0.45% NACL 1000ML 1,000 ML IV SCH (10:30)
[2021-09-13] MEDS ORDERED: DOCUSATE SODIUM 100MG CAPSULE PO PRN (10:30)
[2021-09-13] MEDS ORDERED: GUAIFENESIN 200MG/10ML SUGAR FREE UDC PO PRN (10:30)
[2021-09-13] MEDS ORDERED: IPRATROPIUM/ALBUTEROL 0.5-3(2.5)MG/3ML NEB NEB PRN (10:30)
[2021-09-13] MEDS: LOSARTAN POTASSIUM 50 MG TABLET PO SCH ×2 (11:00→17:44)
[2021-09-13] MEDS ORDERED: LEVO100T PO (11:12)
[2021-09-13] MEDS ORDERED: OMEP40CA20 MT (11:12)
[2021-09-13] MEDS ORDERED: CLON0.2T PO (11:12)
[2021-09-13] MEDS ORDERED: LOSA1TAB37 MT (11:12)
[2021-09-13] MEDS ORDERED: ATOR10TA69 PO (11:12)
[2021-09-13] MEDS ORDERED: METF-414 PO (11:12)
[2021-09-13] MEDS ORDERED: POTA-205 MT (11:12)
[2021-09-13] MEDS ORDERED: LEVOFLOXACIN 500MG PREMIX 100 ML IV NR (12:30)
[2021-09-13] MEDS ORDERED: OLANZAPINE 10 MG/VIAL IM PRN (13:00)
[2021-09-13 16:13] LABS: CHLORIDE 106 mEq/L (98-107)
[2021-09-13] MEDS: CLONIDINE 0.1MG TABLET PO PRN (16:15)
[2021-09-13 16:23] LABS: BASOPHILS % 0.5 % (0.0-2.0); EOSINOPHILS % 0.9 % (0.0-5.0); HEMATOCRIT. 40.3 % (36.0-48.0); HEMOGLOBIN. 13.8 g/dL (12.0-16.0); LYMPHOCYTES % 12.1 % (20.0-50.0); MEAN CORPUSCULAR HEMOGLOBIN 30.8 pg (28.0-32.0); MEAN CORPUSCULAR VOLUME 89.9 fL (81.0-99.0); MONOCYTES % 10.3 % (2.0-8.0); NEUTROPHILS % 76.2 % (40.0-76.0); RED BLOOD CELL COUNT 4.48 mill/uL (4.2-5.4); RED CELL DISTRIBUTION WIDTH 14.1 % (11.6-14.6)
[2021-09-13 17:05] LABS: MEAN PLATELET VOLUME 9.5 fl (7.4-10.4); PLATELET 208 x1000/uL (130-400)
[2021-09-14] VITALS: BP 205/71
[2021-09-14] MEDS: CLONIDINE 0.1MG TABLET PO PRN ×2 (00:25→16:56)
[2021-09-14 04:00] VITALS: BP 157/62
[2021-09-14] MEDS: DEXT 5%/0.45% NACL 1000ML 1,000 ML IV SCH (06:17)
[2021-09-14 07:07] LABS: BASOPHILS % 0.3 % (0.0-2.0); EOSINOPHILS % 1.1 % (0.0-5.0); HEMATOCRIT. 34.9 % (36.0-48.0); HEMOGLOBIN. 12.2 g/dL (12.0-16.0); LYMPHOCYTES % 16.2 % (20.0-50.0); MEAN CORPUSCULAR HEMOGLOBIN 30.9 pg (28.0-32.0); MEAN CORPUSCULAR VOLUME 88.7 fL (81.0-99.0); MEAN PLATELET VOLUME 9.6 fl (7.4-10.4); MONOCYTES % 11.9 % (2.0-8.0); NEUTROPHILS % 70.5 % (40.0-76.0); PLATELET 220 x1000/uL (130-400); RED BLOOD CELL COUNT 3.94 mill/uL (4.2-5.4)
[2021-09-14 07:36] LABS: CHLORIDE 105 mEq/L (98-107)
[2021-09-14 07:44] LABS: PHOSPHORUS 3.3 mg/dL (2.5-4.9)
[2021-09-14 08:00] VITALS: BP 160/114
[2021-09-14] MEDS: LOSARTAN POTASSIUM 50 MG TABLET PO SCH (09:25)
[2021-09-14 12:00] VITALS: BP 180/85
[2021-09-14] MEDS ORDERED: POTASSIUM CHLORIDE 20MEQ/PACKET PO NR (12:30)
[2021-09-14] MEDS ORDERED: LOSARTAN POTASSIUM 50 MG TABLET PO NR (12:30)
[2021-09-14] MEDS: LEVOFLOXACIN 250MG PREMIX 50 ML IV SCH (12:49)
[2021-09-14 16:00] VITALS: BP 170/75
[2021-09-14] MEDS: OLANZAPINE 2.5MG TABLET PO SCH (16:55)
[2021-09-14] MEDS: LEVOTHYROXINE SODIUM 100MCG TABLET PO SCH (16:55)
[2021-09-14 20:00] VITALS: BP 219/85
[2021-09-14] MEDS ORDERED: HYDRALAZINE 20MG/ML VIAL IV PRN (21:00)
[2021-09-14] MEDS ORDERED: HYDRALAZINE 20MG/ML VIAL IV NR (21:00)
[2021-09-14] MEDS: ATORVASTATIN CALCIUM 10MG TABLET PO SCH (21:17)
[2021-09-14] MEDS: ACETAMINOPHEN 325MG TABLET PO PRN (23:27)
[2021-09-15] VITALS (7 sets, daily range): BP systolic 117–193; BP diastolic 53–88
[2021-09-15] MEDS: CLONIDINE 0.1MG TABLET PO PRN ×2 (05:01→23:47)
[2021-09-15] MEDS: DEXT 5%/0.45% NACL 1000ML 1,000 ML IV SCH ×2 (05:04→21:36)
[2021-09-15] MEDS: ACETAMINOPHEN 325MG TABLET PO PRN ×2 (06:39→13:15)
[2021-09-15 08:06] LABS: VITAMIN B12 SERUM 985 pg/mL (211-911)
[2021-09-15] MEDS: OLANZAPINE 2.5MG TABLET PO SCH (08:57)
[2021-09-15] MEDS: LOSARTAN POTASSIUM 50 MG TABLET PO SCH (08:57)
[2021-09-15] MEDS: MEMANTINE HCL 5MG TABLET PO SCH (08:57)
[2021-09-15] MEDS: LEVOTHYROXINE SODIUM 100MCG TABLET PO SCH (08:57)
[2021-09-15] MEDS ORDERED: OLAN5TAB39 MT (09:52)
[2021-09-15] MEDS ORDERED: LEVO500T90 MT (09:52)
[2021-09-15] MEDS ORDERED: POTASSIUM CHLORIDE 20MEQ/PACKET PO NR (10:00)
[2021-09-15 10:24] LABS: BASOPHILS % 0.7 % (0.0-2.0); EOSINOPHILS % 0.2 % (0.0-5.0); HEMOGLOBIN. 12.9 g/dL (12.0-16.0); LYMPHOCYTES % 12.7 % (20.0-50.0); MEAN CORPUSCULAR HEMOGLOBIN 30.5 pg (28.0-32.0); MEAN CORPUSCULAR VOLUME 89.8 fL (81.0-99.0); MEAN PLATELET VOLUME 10.3 fl (7.4-10.4); MONOCYTES % 12.2 % (2.0-8.0); NEUTROPHILS % 74.2 % (40.0-76.0); PLATELET 216 x1000/uL (130-400); RED BLOOD CELL COUNT 4.24 mill/uL (4.2-5.4); RED CELL DISTRIBUTION WIDTH 14.5 % (11.6-14.6)
[2021-09-15 10:33] LABS: CHLORIDE 106 mEq/L (98-107)
[2021-09-15] MEDS ORDERED: POTASSIUM CHLORIDE 20MEQ TABLET SR PO SCH (10:45)
[2021-09-15] MEDS: LEVOFLOXACIN 250MG PREMIX 50 ML IV SCH (11:08)
[2021-09-15] MEDS ORDERED: MEMA7CAP2 PO ×2 (13:00)
[2021-09-15] MEDS: CLONIDINE 0.1MG TABLET PO SCH ×2 (13:16→21:25)
[2021-09-15] MEDS: ATORVASTATIN CALCIUM 10MG TABLET PO SCH (21:25)
[2021-09-16] VITALS: BP 185/70
[2021-09-16 04:00] VITALS: BP 117/63
[2021-09-16] MEDS: CLONIDINE 0.1MG TABLET PO SCH ×3 (05:50→21:17)
[2021-09-16 08:00] VITALS: BP 178/80
[2021-09-16] MEDS: MEMANTINE HCL 5MG TABLET PO SCH (08:39)
[2021-09-16] MEDS: LOSARTAN POTASSIUM 50 MG TABLET PO SCH (08:39)
[2021-09-16] MEDS: LEVOTHYROXINE SODIUM 100MCG TABLET PO SCH (08:39)
[2021-09-16] MEDS: OLANZAPINE 2.5MG TABLET PO SCH (08:39)
[2021-09-16 12:00] VITALS: BP 145/64
[2021-09-16 16:00] VITALS: BP 142/58
[2021-09-16] MEDS: DEXT 5%/0.45% NACL 1000ML 1,000 ML IV SCH (18:15)
[2021-09-16 20:00] VITALS: BP 171/70
[2021-09-16] MEDS: ATORVASTATIN CALCIUM 10MG TABLET PO SCH (21:17)
[2021-09-17] VITALS: BP 174/70
[2021-09-17 04:00] VITALS: BP 159/59
[2021-09-17] MEDS: LEVOTHYROXINE SODIUM 100MCG TABLET PO SCH (06:28)
[2021-09-17] MEDS: CLONIDINE 0.1MG TABLET PO SCH ×3 (06:28→22:18)
[2021-09-17 08:00] VITALS: BP 154/64
[2021-09-17] MEDS: MEMANTINE HCL 5MG TABLET PO SCH (08:40)
[2021-09-17] MEDS: LOSARTAN POTASSIUM 50 MG TABLET PO SCH (08:40)
[2021-09-17] MEDS: LEVOFLOXACIN 250MG TABLET PO SCH (12:22)
[2021-09-17] MEDS: DEXT 5%/0.45% NACL 1000ML 1,000 ML IV SCH (14:30)
[2021-09-17 16:00] VITALS: BP 148/79
[2021-09-17 17:19] LABS: BASOPHILS % 0.2 % (0.0-2.0); EOSINOPHILS % 0.7 % (0.0-5.0); HEMATOCRIT. 35.8 % (36.0-48.0); HEMOGLOBIN. 12.2 g/dL (12.0-16.0); LYMPHOCYTES % 12.4 % (20.0-50.0); MEAN CORPUSCULAR HEMOGLOBIN 30.9 pg (28.0-32.0); MEAN CORPUSCULAR VOLUME 90.4 fL (81.0-99.0); MONOCYTES % 11.9 % (2.0-8.0); NEUTROPHILS % 74.8 % (40.0-76.0); PLATELET 239 x1000/uL (130-400); RED BLOOD CELL COUNT 3.96 mill/uL (4.2-5.4); RED CELL DISTRIBUTION WIDTH 13.8 % (11.6-14.6)
[2021-09-17 20:00] VITALS: BP 169/57
[2021-09-17] MEDS ORDERED: OLANZAPINE 10 MG/VIAL IM PRN (20:15)
[2021-09-17] MEDS: ATORVASTATIN CALCIUM 10MG TABLET PO SCH (22:18)
[2021-09-18] VITALS: BP 175/83
[2021-09-18 04:00] VITALS: BP 154/65
[2021-09-18] MEDS: CLONIDINE 0.1MG TABLET PO SCH ×3 (05:57→21:03)
[2021-09-18 08:00] VITALS: BP 165/63
[2021-09-18] MEDS: LOSARTAN POTASSIUM 50 MG TABLET PO SCH (08:59)
[2021-09-18] MEDS: LEVOTHYROXINE SODIUM 100MCG TABLET PO SCH (08:59)
[2021-09-18] MEDS: MEMANTINE HCL 5MG TABLET PO SCH (08:59)
[2021-09-18] MEDS: DEXT 5%/0.45% NACL 1000ML 1,000 ML IV SCH (10:03)
[2021-09-18] MEDS: LEVOFLOXACIN 250MG TABLET PO SCH (11:34)
[2021-09-18 12:00] VITALS: BP 162/58
[2021-09-18 16:00] VITALS: BP 167/59
[2021-09-18] MEDS: CLONIDINE 0.1MG TABLET PO PRN (17:59)
[2021-09-18 20:00] VITALS: BP 173/56
[2021-09-18] MEDS: ATORVASTATIN CALCIUM 10MG TABLET PO SCH (21:02)
[2021-09-19] VITALS: BP 181/75
[2021-09-19] MEDS: CLONIDINE 0.1MG TABLET PO PRN (01:09)
[2021-09-19 04:00] VITALS: BP 163/56
[2021-09-19] MEDS: DEXT 5%/0.45% NACL 1000ML 1,000 ML IV SCH (06:30)
[2021-09-19] MEDS: LEVOTHYROXINE SODIUM 100MCG TABLET PO SCH (06:43)
[2021-09-19] MEDS: CLONIDINE 0.1MG TABLET PO SCH ×3 (06:44→22:42)
[2021-09-19] MEDS: MEMANTINE HCL 5MG TABLET PO SCH (09:12)
[2021-09-19] MEDS: LOSARTAN POTASSIUM 50 MG TABLET PO SCH (09:12)
[2021-09-19 12:00] VITALS: BP 112/47
[2021-09-19] MEDS: LEVOFLOXACIN 250MG TABLET PO SCH (12:49)
[2021-09-19 14:00] VITALS: BP 138/55
[2021-09-19 20:00] VITALS: BP_SYST 175; BP_SYST 185; BP_DIAS 60; BP_DIAS 65
[2021-09-19] MEDS: ATORVASTATIN CALCIUM 10MG TABLET PO SCH (22:36)
[2021-09-20] VITALS: BP 172/77
[2021-09-20] MEDS: CLONIDINE 0.1MG TABLET PO PRN (01:11)
[2021-09-20] MEDS: DEXT 5%/0.45% NACL 1000ML 1,000 ML IV SCH ×2 (02:30→21:33)
[2021-09-20 04:00] VITALS: BP 180/91
[2021-09-20] MEDS: CLONIDINE 0.1MG TABLET PO SCH ×3 (05:24→21:33)
[2021-09-20 06:38] VITALS: BP 132/51
[2021-09-20] MEDS: LOSARTAN POTASSIUM 50 MG TABLET PO SCH (09:28)
[2021-09-20] MEDS: LEVOTHYROXINE SODIUM 100MCG TABLET PO SCH (09:28)
[2021-09-20] MEDS: MEMANTINE HCL 5MG TABLET PO SCH (09:30)
[2021-09-20] MEDS: LEVOFLOXACIN 250MG TABLET PO SCH (12:10)
[2021-09-20 16:00] VITALS: BP 156/71
[2021-09-20 20:00] VITALS: BP 171/64
[2021-09-20] MEDS: ATORVASTATIN CALCIUM 10MG TABLET PO SCH (21:32)
[2021-09-21] VITALS (7 sets, daily range): BP systolic 150–192; BP diastolic 62–87
[2021-09-21] MEDS: CLONIDINE 0.1MG TABLET PO SCH ×4 (06:00→21:27)
[2021-09-21] MEDS: LEVOTHYROXINE SODIUM 100MCG TABLET PO SCH (08:47)
[2021-09-21] MEDS: MEMANTINE HCL 5MG TABLET PO SCH (09:58)
[2021-09-21] MEDS: LOSARTAN POTASSIUM 50 MG TABLET PO SCH (09:58)
[2021-09-21] MEDS: LEVOFLOXACIN 250MG TABLET PO SCH (12:14)
[2021-09-21] MEDS: DEXT 5%/0.45% NACL 1000ML 1,000 ML IV SCH (18:30)
[2021-09-21] MEDS ORDERED: ARIPIPRAZOLE 5MG TABLET PO SCH (21:00)
[2021-09-21] MEDS: ATORVASTATIN CALCIUM 10MG TABLET PO SCH (21:27)
[2021-09-21] MEDS: RISPERIDONE 0.5MG TABLET PO SCH (21:27)
[2021-09-21] MEDS: MIRTAZAPINE 15MG TABLET PO SCH (21:27)
[2021-09-21] MEDS: BENZTROPINE MESYLATE 0.5MG TABLET PO SCH (21:27)
[2021-09-22] VITALS (18 sets, daily range): BP systolic 122–199; BP diastolic 57–88
[2021-09-22] MEDS: CLONIDINE 0.1MG TABLET PO PRN ×3 (01:35→17:44)
[2021-09-22] MEDS: CLONIDINE 0.1MG TABLET PO SCH (05:08)
[2021-09-22] MEDS ORDERED: CLONIDINE 0.1MG TABLET PO SCH (06:00)
[2021-09-22] MEDS: LOSARTAN POTASSIUM 50 MG TABLET PO SCH (06:05)
[2021-09-22] MEDS ORDERED: DONEPEZIL HCL 5MG TABLET PO SCH (09:00)
[2021-09-22] MEDS: LEVOTHYROXINE SODIUM 100MCG TABLET PO SCH (09:23)
[2021-09-22] MEDS: RISPERIDONE 0.5MG TABLET PO SCH ×2 (09:25→22:27)
[2021-09-22] MEDS: MEMANTINE HCL 5MG TABLET PO SCH (09:25)
[2021-09-22] MEDS: BENZTROPINE MESYLATE 0.5MG TABLET PO SCH ×2 (09:26→22:26)
[2021-09-22] MEDS ORDERED: AMLODIPINE 5MG TABLET PO SCH (11:15)
[2021-09-22] MEDS: LEVOFLOXACIN 250MG TABLET PO SCH (11:45)
[2021-09-22] MEDS: DEXT 5%/0.45% NACL 1000ML 1,000 ML IV SCH (14:30)
[2021-09-22] MEDS: CLONIDINE 0.2MG TABLET PO SCH ×2 (15:06→22:27)
[2021-09-22] MEDS ORDERED: HYDRALAZINE HCL 25MG TABLET PO NR (20:15)
[2021-09-22] MEDS: MIRTAZAPINE 15MG TABLET PO SCH (22:27)
[2021-09-22] MEDS: ATORVASTATIN CALCIUM 10MG TABLET PO SCH (22:27)
[2021-09-23] VITALS: BP 136/73
[2021-09-23] MEDS: CLONIDINE 0.1MG TABLET PO PRN (00:32)
[2021-09-23] MEDS ORDERED: HYDRALAZINE HCL 25MG TABLET PO SCH (06:00)
[2021-10-19] MEDS ORDERED: MEMA5TAB7 PO (13:44)
[2021-10-19] MEDS ORDERED: BENZ0.5T43 PO (13:45)
[2021-10-19] MEDS ORDERED: RISP0.5T65 PO (13:46)
[2021-10-19] MEDS ORDERED: DONE5TAB33 PO (13:47)
[2021-10-19] MEDS ORDERED: MIRT-89 PO (13:48)
== END 2021-09-23 01:00 | DRG 689 ==
LOC: ER 18:20 → MICUSO 09-13 00:52 → 7WST 09-13 09:27
PROVIDERS: ADMIT Internal Medicine Critical Care Medicine; ATTEND Internal Medicine Critical Care Medicine
DX: N30.00 Acute cystitis without hematuria (principal); G93.41 Metabolic encephalopathy; M48.02 Spinal stenosis, cervical region; G30.9 Alzheimer's disease, unspecified; F02.80 Dementia in other diseases classified elsewhere, unspecified severity, without behavioral disturbance, psychotic disturbance, mood disturbance, and anxiety; M94.0 Chondrocostal junction syndrome [Tietze]; E87.6 Hypokalemia; G47.33 Obstructive sleep apnea (adult) (pediatric); E11.42 Type 2 diabetes mellitus with diabetic polyneuropathy; E03.9 Hypothyroidism, unspecified; R41.9 Unspecified symptoms and signs involving cognitive functions and awareness; D64.9 Anemia, unspecified; E78.5 Hyperlipidemia, unspecified; F32.A Depression, unspecified; M54.30 Sciatica, unspecified side; I10 Essential (primary) hypertension; M50.221 Other cervical disc displacement at C4-C5 level; Z96.653 Presence of artificial knee joint, bilateral; M19.90 Unspecified osteoarthritis, unspecified site; R63.5 Abnormal weight gain; Z68.31 Body mass index [BMI] 31.0-31.9, adult; Z87.440 Personal history of urinary (tract) infections; Z79.899 Other long term (current) drug therapy; Z88.0 Allergy status to penicillin; F99 Mental disorder, not otherwise specified
CPT/HCPCS: 36415; 73030; 80048; 80053; 81003; 82607; 83735; 83880; 84100; 84443; 84484; 85025; 93005; 93970; 97161; 97166; 97530; 97535; 99285; J0360; J1956; J3490